=== PATIENT | female | born 1960 | race Caucasian/White ===

== ENCOUNTER 2019-09-02 11:49 | Inpatient (IN) | payer BC ==
[~2019-09-02] VITALS: Ht 144.8 cm; Wt 50.8 kg
[2019-09-02 11:52] VITALS: Ht 144.8 cm; Wt 50.8 kg
[2019-09-02 12:59] LABS: BASOPHIL % 0.3 % (0-2); PLATELET COUNT 242 x10^3mcL (130-400); RED CELL DISTRIBUTION WIDTH 12.8 % (11.5-14.5)
[2019-09-02 13:00] LABS: CALCIUM 8.3 mg/dL (8.5-10.1); CARBON DIOXIDE 23.1 mmol/L (21-32); CHLORIDE SERUM 109 mmol/L (98-107); GFR1 > 60 mL/min; GLUCOSE SERUM 99 mg/dL (74-106); POTASSIUM SERUM 3.7 mmol/L (3.5-5.1); SODIUM SERUM 142 mmol/L (136-145)
[2019-09-02 13:05] LABS: ALBUMIN 3.5 g/dL (3.4-5.0); ALKALINE PHOSPHATASE 90 U/L (46-116); ALT/SGPT 42 U/L (14-59); AST/SGOT 25 U/L (15-37); BILIRUBIN TOTAL 0.2 mg/dL (0.20-1.00); CHOLESTEROL 184 mg/dL (<200); TOTAL PROTEIN, SERUM 6.9 g/dL (6.4-8.2); TRIGLYCERIDES 63 mg/dL (<150)
[2019-09-02 13:10] LABS: CHOLESTEROL/HDL RATIO 2.9; HDL CHOLESTEROL 63 mg/dL (40-60); LIPASE 2034 IU/L (73-393)
[2019-09-02 13:12] LABS: FREE T4 0.88 ng/dL (0.76-1.46); FREE THYROXINE INDEX 2.1 ug/dL (1.4-4.5); T4(THYROXINE) 5.9 ug/dL (4.7-13.3)
[2019-09-02 13:22] LABS: T3 TOTAL 1.17 ng/mL
[2019-09-02] MEDS ORDERED: LIPI20 PO (15:38)
[2019-09-02] MEDS ORDERED: AMLODIPINE BESY10 M2 PO (15:39)
[2019-09-02] MEDS ORDERED: MONTELUKAST SOD10 M1 PO (15:40)
[2019-09-02 15:43] LABS: microscopic required? NO
[2019-09-02 15:49] LABS: urine erythrocyte NEGATIVE (NEGATIVE)
[2019-09-02 15:58] LABS: AMPHETAMINE QUAL UR NONE DETECTED (See below)
[2019-09-02 16:43] VITALS: BP 140/83
[2019-09-02 20:35] VITALS: BP 101/49
[2019-09-03 05:32] VITALS: BP 115/61
[2019-09-03 07:17] LABS: BASOPHIL % 0.4 % (0-2); PLATELET COUNT 210 x10^3mcL (130-400); RED CELL DISTRIBUTION WIDTH 12.8 % (11.5-14.5)
[2019-09-03 07:49] LABS: CALCIUM 8.2 mg/dL (8.5-10.1); CARBON DIOXIDE 20.5 mmol/L (21-32); CHLORIDE SERUM 111 mmol/L (98-107); CREATININE SERUM 0.6 mg/dL (0.6-1.0); GFR1 > 60 mL/min; GLUCOSE SERUM 83 mg/dL (74-106); LIPASE 1150 IU/L (73-393); POTASSIUM SERUM 3.8 mmol/L (3.5-5.1); SODIUM SERUM 143 mmol/L (136-145)
[2019-09-03 08:44] VITALS: BP 114/64
[2019-09-03 16:50] VITALS: BP 140/80
[2019-09-03 21:41] VITALS: BP 139/83
[2019-09-04 05:37] VITALS: BP 126/71
[2019-09-04 07:05] LABS: BASOPHIL % 0.3 % (0-2); PLATELET COUNT 255 x10^3mcL (130-400); RED CELL DISTRIBUTION WIDTH 12.7 % (11.5-14.5)
[2019-09-04 07:25] LABS: CALCIUM 8.6 mg/dL (8.5-10.1); CARBON DIOXIDE 23.5 mmol/L (21-32); CHLORIDE SERUM 109 mmol/L (98-107); CREATININE SERUM 0.8 mg/dL (0.6-1.0); GFR1 > 60 mL/min; GLUCOSE SERUM 104 mg/dL (74-106); LIPASE 1033 IU/L (73-393); POTASSIUM SERUM 3.3 mmol/L (3.5-5.1); SODIUM SERUM 144 mmol/L (136-145)
[2019-09-04 08:34] VITALS: BP 129/74
[2019-09-04 15:41] VITALS: BP 129/74
[2019-09-04 17:16] VITALS: BP 134/73
== END 2019-09-04 18:46 | disposition home or self-care (01) | DRG 440 ==
LOC: ED 11:49 → MU 15:22
PROVIDERS: Specialist; ADMIT Internal Medicine
DX: K85.00 Idiopathic acute pancreatitis without necrosis or infection (principal); I10 Essential (primary) hypertension; E78.00 Pure hypercholesterolemia, unspecified; E78.5 Hyperlipidemia, unspecified; M43.17 Spondylolisthesis, lumbosacral region; J45.909 Unspecified asthma, uncomplicated; Z90.710 Acquired absence of both cervix and uterus; Z87.442 Personal history of urinary calculi; Z83.3 Family history of diabetes mellitus; Z80.8 Family history of malignant neoplasm of other organs or systems; Z80.42 Family history of malignant neoplasm of prostate; Z80.0 Family history of malignant neoplasm of digestive organs; Z79.899 Other long term (current) drug therapy
CPT/HCPCS: 83880; 84439; G0378; J1885; J2405; J7030; Q0092; Q9967